=== PATIENT | male | born 1960 | race Caucasian/White ===

== ENCOUNTER → 2017-04-07 | Outpatient (CLI) | payer MEDICARE, OTHER ==
[2017-04-07 11:34] LABS: EKG EKG PERFORMED
[2017-04-07 12:07] LABS: Basophils # (A) 0.1 k/uL (0-0.2); Basophils % (A) 1 %; CH 31.1; CHCM 32.7; Eosinophils # (A) 0.4 k/uL (0-0.7); Eosinophils % (A) 4 %; HCT 49.7 % (39.0-53.0); HDW 2.32; HGB 16.2 gm/dL (13.0-17.5); Luc # (Auto) 0.13; Luc % (Auto) 1; Lymphocytes # (A) 2.2 k/uL (1.0-4.8); Lymphocytes % (A) 24 %; MCH 31.1 pg (25.0-35.0); MCHC 32.6 g/dL (31.0-37.0); MCV 95.6 fL (80.0-100.0); Mean Platelet Volume 8.1; Monocytes # (A) 0.5 k/uL (0-1.0); Monocytes % (A) 6 %; Neutrophils % (A) 65 %; RDW 13.7 % (11.5-15.5); WBC 9.3 k/uL (3.8-10.6); WBC (Perox) 9.03
[2017-04-07 12:10] LABS: Partial Thromboplastin Time 24.5 sec (22.0-30.0); Prothrombin Time 10.4 sec (9.0-12.0)
[2017-04-07 12:17] LABS: Anion Gap 7 mmol/L; Blood Urea Nitrogen 7 mg/dL (9-20); Calcium 9.1 mg/dL (8.4-10.2); Carbon Dioxide 26 mmol/L (22-30); Chloride 105 mmol/L (98-107); Glucose 92 mg/dL (74-99); Non-African American GFR(MDRD) >60 (>60 ml/min/1.73 sqM); Potassium 4.5 mmol/L (3.5-5.1); Sodium 138 mmol/L (137-145)
[2017-04-07 12:24] LABS: Appearance,Urine Clear (Clear); Bilirubin,Urine Negative (Negative); Glucose,Urine (UA) Negative (Negative); Ketones,Urine Negative (Negative); Leukocyte Esterase,Urine Negative (Negative); Nitrite,Urine Negative (Negative); Protein,Urine Negative (Negative); Specific Gravity,Urine 1.001 (1.001-1.035); UA Billing (MACRO vs. MICRO) CHEM; Urobilinogen,Urine <2.0 mg/dL (<2.0)
--- NOTE | 2017-04-07 15:05 | XR ---
EXAMINATION TYPE: XR chest 2V DATE OF EXAM: 04/07/2017 COMPARISON: Prior chest x-ray 04/28/2016 and 10/27/2016 HISTORY: Presurgical, shortness of breath TECHNIQUE: Frontal and lateral views of the chest are obtained on 3 images. FINDINGS: There is no focal air space opacity, pleural effusion, or pneumothorax seen. The cardiac silhouette size is within normal limits. Apical pleural thickening is again noted. Prominent lung vol umes indicative of underlying COPD. The osseous structures are intact. IMPRESSION: No acute cardiopulmonary process.
== END | disposition home or self-care (01) ==
LOC: LABPAT 11:12
PROVIDERS: ATTEND Orthopaedic Surgery Orthopaedic Surgery of the Spine
DX: Z01.810 Encounter for preprocedural cardiovascular examination (principal); Z01.812 Encounter for preprocedural laboratory examination; M51.06 Intervertebral disc disorders with myelopathy, lumbar region; R06.02 Shortness of breath
CPT/HCPCS: 71020; 80048; 81003; 85025; 85610; 85730; 86850; 86900; 86901; 93005

== ENCOUNTER 2017-04-17 11:09 | Day surgery (SDC) | payer MEDICARE, OTHER ==
[2017-04-11 14:13] VITALS: BMI 19.9
[~2017-04-17 11:09] MED LIST: BACITRACIN 50,000 UNIT, POLYMYXIN B 500,000 UNIT in SODIUM CHLORIDE 0.9% IRRIGATIO 1,00... IRRIGATION ONE; DEXAMETHASONE SOD PHOSPHATE 10 MG/ML 1 ML VIAL IV ONE; LACTATED RINGERS 1,000 ML IV SCH; MIDAZOLAM 2 MG/2 ML VIAL IV PRN; ONDANSETRON 4 MG/2 ML VIAL IVP ONE; SCOPOLAMINE 1.5MG/72HR PATCH TRANSDERM ONE; ceFAZolin IN SWFI 2 GM/20 ML SYRINGE IVP ONE
[2017-04-17] MEDS ORDERED: LIDOCAINE 1% 20 ML VIAL (10MG/ML) FOR IV START INTRADERMA ONE (11:32)
[2017-04-17] MEDS ORDERED: fentaNYL (PF) 50 MCG/ML 2 ML AMP ONE (13:10)
[2017-04-17] MEDS ORDERED: PROPOFOL 10 MG/ML 20 ML VIAL IV ONE (13:10)
[2017-04-17] MEDS ORDERED: SUCCINYLCHOLINE CHLORIDE 100 MG/5 ML SYR IV ONE (13:10)
[2017-04-17] MEDS ORDERED: ePHEDrine 50 MG/ML 1 ML AMP ONE (13:10)
[2017-04-17] MEDS ORDERED: LIDOCAINE 1% INJ 10MG/ML (20 ML MDV) ONE (13:10)
[2017-04-17] MEDS ORDERED: MIDAZOLAM 2 MG/2 ML VIAL ONE (13:10)
[2017-04-17] MEDS ORDERED: GELATIN SPONGE,ABSORB (LARGE) 1 EACH SPONGE TOPICAL ONE (13:33)
[2017-04-17] MEDS ORDERED: THROMBIN (BOVINE) 5,000 UNIT VIAL TOPICAL ONE (13:34)
[2017-04-17] MEDS ORDERED: BUPIVACAINE-EPI 0.5%-1:200,000 10 ML VIAL SQ ONE (13:42)
[2017-04-17] MEDS ORDERED: methylPREDNISolone ACETATE 80 MG/ML 1 ML VIAL MISCELLANE ONE (14:13)
--- NOTE | 2017-04-17 14:41 | P.OP ---
Date of Procedure: 04/17/17 Preoperative Diagnosis: Herniated nucleus pulposis L3 4, spinal stenosis L3 4 with foraminal stenosis, left lower extremity radiculopathy Postoperative Diagnosis: Same Anesthesia: GETA Pathology: none sent Condition: stable Disposition: PACU Description of Procedure: BRIEF OPERATIVE NOTE Preoperative Diagnosis: Herniated nucleus pulposis L3 4, spinal stenosis with foraminal stenosis L3 4, left lower extremity radiculopathy Postoperative Diagnosis: Same Procedure: Laminectomy and decompression with partial facetectomy and foraminotomy L3 4 Discectomy for decompression L3 4 Use of C-arm guidance Surgeon: Dr. Wells [employer] Team Member: Christopher PARNELL who is present throughout the entire the case persistence during positioning, dissection, exposure, visualization, and all crucial elements of the case as well as closure. Anesthesia: General anesthesia Estimated blood loss: Approximately 30 mL Complications: None apparent Components implanted: None Disposition: To recovery room in good stable condition. OPERATIVE INDICATIONS The patient has been having issues in their lower back and lower extremities. The patient was found have significant radicular symptoms at his left lower extremity. He was found have significant stenosis with foraminal stenosis and disc herniation at L3 4 which correlated well with his low back and lower extremity symptoms. The patient has been through conservative treatment. He is not having a prolonged benefit despite aggressive conservative treatment. We discussed various treatment options including surgery, and the patient wishes to proceed with surgery We discussed the risk, patient's alternatives and benefits of surgery including but not limited to, risk of bleeding risk of infection, risk of need for further surgery, risk of decreased, loss of motion, loss of function, nerve damage, paralysis, heart attack, blindness and . OPERATIVE SUMMARY After discussing all the risks, patient alternatives and benefits at length, the patient elected to proceed with surgical intervention, signed informed consent, and presented for their procedure. The patient was seen and examined in the preoperative holding area and the surgical site was marked. The patient was given antibiotics and brought to the operating room. The patient was sedated and intubated by anesthesia in standard fashion. The patient was positioned on to the operating room table in a prone position on the appropriate frame which was well-padded and well molded. We were careful to pad any bony prominences and pressure points. We were careful to maintain the patient's cervical spine and good neutral alignment and position throughout. The patient was prepped and draped in a normal standard fashion. An appropriate timeout and keystone protocol performed. We were able to proceed with the surgery. Fluoroscopy was utilized to establish the appropriate level. The local wound area was infiltrated with local anesthetic. An incision was made at the midline longitudinally over the appropriate levels at L3 4. Dissection was taken down subcutaneously to the level of the fascia which was split midline. Dissection was taken over the lamina. Intraoperative fluoroscopy was taken which showed a marker at the appropriate level at L3 4. With the appropriate level positively confirmed, we were able to proceed with laminectomy. The wound was copiously irrigated and suctioned dry as had been done periodically throughout the case. I performed a laminectomy with a combination of curettes and a high-speed bur and Kerrison rongeurs. A small medial facetectomy was performed again further access. A partial foraminotomy was also performed. There was significant stenosis at the neural foramen and hypertrophy of the facet joint. I took down portions of the facet capsule and the facet joint and a partial foraminotomy to get good decompression at the area. I was able get across the midline as well and connected decompression centrally across the midline. Portions of the ligamentum flavum were taken down to expose the dura and traversing nerve root. I was able to mobilize the traversing nerve root and gain access to the disc space. Note was made of obvious compression from the disc. Protecting the soft tissue structures, a small annulotomy was established. I was able to perform discectomy and remove any extruded disc fragments and any loose fragments from within the disc itself. There is some disc significant desiccation noted. I tried to preserve the disc annulus that appeared stable. There were no further extruded fragments noted. There is no evidence of dural tear or leak. Good hemostasis maintained. The wound was copiously irrigated and suctioned dry. Good decompression and discectomy was noted at L3 4. We were able to proceed with closure. The fascia was closed for a watertight closure. The subcuticular tissue was closed with absorbable suture. The wound was cleaned and dried and dressed with the appropriate dressing. The drapes were broken down. The patient was gently rolled back onto their hospital bed being careful to maintain their cervical spine and good neutral alignment and position. They were woken up by anesthesia, extubated, and brought to the recovery room in good stable condition. The patient will be admitted to the hospital for observation and for appropriate postoperative care, medical management and monitoring. We will continue to follow them closely about the postoperative course.
[2017-04-17] MEDS ORDERED: IBUPROFEN 600 MG TAB PO PRN (14:42)
[2017-04-17] MEDS ORDERED: HYDROcodone/APAP 5-325MG 1 EACH TAB PO PRN ×2 (14:42)
[2017-04-17] MEDS ORDERED: HYDROmorphone 2 MG/ML 1 ML SYRINGE IVP PRN ×2 (14:42)
[2017-04-17] MEDS ORDERED: ALBUTEROL NEBULIZED 2.5 MG/3 ML INHALATION PRN ×2 (14:43→14:53)
[2017-04-17] MEDS ORDERED: HYDROcodone/APAP 7.5-325MG 1 EACH TAB PO PRN (14:43)
[2017-04-17 14:48] VITALS: RESP 16
--- NOTE | 2017-04-17 15:16 | FL ---
Fluoroscopy HISTORY: Pain 2 seconds fluoroscopy time supplied to the referring clinician. 1 intraoperative C-arm images docume nt the procedure. See dictated report from orthopedic surgery.
--- NOTE | 2017-04-17 15:16 | XR ---
One view lumbar spine HISTORY: Lumbar laminectomy Intraoperative C-arm image documents the procedure
[2017-04-17] MEDS: HYDROmorphone 0.5 MG/0.5 ML SYRINGE IVP PRN ×4 (15:22→16:00)
[2017-04-17] MEDS ORDERED: ALBUTEROL NEBULIZED 2.5 MG/3 ML INHALATION SCH (16:00)
[2017-04-17] MEDS: IPRATROPIUM-ALBUTEROL 3 ML NEB INHALATION SCH ×2 (16:04→16:10)
[2017-04-17 17:15] VITALS: BP 130/71; TEMP 97.4
[2017-04-17 17:33] VITALS: PULSE 80
[2017-04-17] MEDS ORDERED: SYMBICORT 160-4.5 MCG INHALER INHALATION SCH (20:00)
[2017-04-17] MEDS ORDERED: ceFAZolin IN SWFI 2 GM/20 ML SYRINGE IVP SCH (21:00)
[2017-04-17] MEDS ORDERED: METOPROLOL SUCCINATE (ER) 25 MG TAB.ER.24H PO SCH (21:00)
[2017-04-18] MEDS ORDERED: NON-FORMULARY DRUG (Umeclidinium Bromide [Incruse Ellipta] 1 PUFF) INHALATION SCH (09:00)
[2017-04-18] MEDS ORDERED: ASPIRIN 81 MG PO SCH (09:00)
== END 2017-04-17 18:15 | disposition home or self-care (01) ==
LOC: OR 11:09 → 5MS5E 14:30 → OR 18:15
PROVIDERS: ATTEND Orthopaedic Surgery Orthopaedic Surgery of the Spine
DX: M51.16 Intervertebral disc disorders with radiculopathy, lumbar region (principal); M48.061 Spinal stenosis, lumbar region without neurogenic claudication; M47.817 Spondylosis without myelopathy or radiculopathy, lumbosacral region; G89.29 Other chronic pain; J44.9 Chronic obstructive pulmonary disease, unspecified; I25.10 Atherosclerotic heart disease of native coronary artery without angina pectoris; F17.210 Nicotine dependence, cigarettes, uncomplicated; Z99.81 Dependence on supplemental oxygen; Z79.51 Long term (current) use of inhaled steroids; Z79.899 Other long term (current) drug therapy; Z91.81 History of falling; Z88.8 Allergy status to other drugs, medicaments and biological substances
CPT/HCPCS: 72020; 86850; 86900; 86901; 94640

== ENCOUNTER 2018-06-08 10:26 | Emergency (ER) | payer MEDICARE, OTHER ==
[2018-06-08 10:36] VITALS: TEMP 97.4
[2018-06-08] MEDS ORDERED: ASPIRIN 81 MG PO STA (10:58)
[2018-06-08] MEDS ORDERED: SODIUM CHLORIDE 0.9% 1,000 ML IV STA (10:58)
[2018-06-08] MEDS ORDERED: KETOROLAC 30 MG/ML 1 ML VIAL IVP STA (11:00)
--- NOTE | 2018-06-08 11:16 | ED ---
Chest Pain HPI - General Chief Complaint: Chest Pain Stated Complaint: CHEST PAIN, ABNORMAL EKG Time Seen by Provider: 06/08/18 10:35 Source: patient, RN notes reviewed Mode of arrival: ambulatory Limitations: no limitations - History of Present Illness Initial Comments: Physical 58-year-old male who presents with complaints of left-sided chest pain is been going on for about 5 days. His been lasting longer initially was just left chest now goes to her left shoulder and lower to left lower chest and back area. He states is mostly dull and achy in nature it worse 01/05 he gets worse with coughing but he coughs of no phlegm he is in no fevers chills or sweats. He was seen by his doctor today and sent here for further evaluation. He did not take any aspirin. No trauma or heavy lifting reported. No recent travel. MD Complaint: chest pain - Related Data Home Medications Medication Instructions Recorded Confirmed Albuterol Sulfate [Proair Hfa] 2 puff INHALATION RT-Q6H PRN 04/25/16 06/08/18 HYDROcodone/APAP 7.5-325MG [[place] 1 tab PO TID PRN 04/25/16 06/08/18 7.5-325] Albuterol Nebulized [Ventolin 2.5 mg INHALATION RT-Q6H PRN 04/11/17 06/08/18 Nebulized] Umeclidinium [place] [Incruse 1 puff INHALATION RT-DAILY 04/11/17 06/08/18 Ellipta] Fluticasone/Salmeterol [Advair Hfa 2 puff INHALATION RT-BID 06/27/17 06/08/18 45-21 Mcg Inhaler] Metoprolol Tartrate [Lopressor] 12.5 mg PO BID 06/27/17 06/08/18 Aspirin 81 mg PO DAILY 06/08/18 06/08/18 predniSONE 5 mg PO DAILY 06/08/18 06/08/18 Previous Rx's Medication Instructions Recorded Ibuprofen 800 mg PO Q6HR PRN #20 tablet 06/08/18 Allergies Allergy/AdvReac Type Severity Reaction Status Date / Time nuclear med dye Allergy Anaphylaxis Uncoded 06/08/18 10:35 Review of Systems ROS Statement: Those systems with pertinent positive or pertinent negative responses have been documented in the HPI. ROS Other: All systems not noted in ROS Statement are negative. EKG Findings - EKG Results: EKG: interpreted by DEACON, sinus rhythm (Sinus rhythm 83. Interval 126 QRS duration 86 QT since QTC 364/427 bilaterally to enlargement no definite acute ST -T wave changes this is compared with an EKG submitted from the office today showing no change) Past Medical History Past Medical History: Asthma, COPD Additional Past Medical History / Comment(s): Advanced COPD of an emphysematous type,home 02 3 liters n/c, previous pulmonary infection with KAITLYNN, degenerative arthritis involving the lumbar spine, bronchitis, "pinched nerve"/herniated discs,spinal stenosis History of Any Multi-Drug Resistant Organisms: None Reported Past Surgical History: Heart Catheterization Additional Past Surgical History / Comment(s): Previous bronchoscopy, lung bx, fatty tumors removed from lt hand,groin, back of neck, rt eye lid sx,cataracts removed-lens implnats, laminectomy/decompression/discectomy l3-l4 Past Anesthesia/Blood Transfusion Reactions: No Reported Reaction Past Psychological History: No Psychological Hx Reported Smoking Status: Current every day smoker Past Alcohol Use History: None Reported Past Drug Use History: None Reported - Past Family History Father Family Medical History: Cancer Additional Family Medical History / Comment(s): stomach and liver cancer Mother Family Medical History: Cancer Additional Family Medical History / Comment(s): lung cancer General Exam - General Exam Comments Initial Comments: This is a well-developed asthenic appearing male who is awake alert oriented 3 Limitations: no limitations General appearance: alert, in no apparent distress Head exam: Present: atraumatic, normocephalic, normal inspection Eye exam: Present: normal appearance, PERRL, EOMI. Absent: scleral icterus, conjunctival injection, periorbital swelling ENT exam: Present: normal exam, mucous membranes moist Neck exam: Present: normal inspection. Absent: tenderness, meningismus, lymphadenopathy Respiratory exam: Present: normal lung sounds bilaterally, chest wall tenderness (Tennis palpation of left anterior chest wall left axilla left lateral chest with no step-off or crepitation slightly diminished breath sounds with no focal consolidations no rales or rhonchi. Reproducible chest pain on palpation the patient states when I do palpate his chest is identical to the discomfort he is experiencing.). Absent: respiratory distress, wheezes, rales, rhonchi, stridor Cardiovascular Exam: Present: regular rate, normal rhythm, normal heart sounds. Absent: systolic murmur, diastolic murmur, rubs, gallop, clicks GI/Abdominal exam: Present: soft, normal bowel sounds. Absent: distended, tenderness, guarding, rebound, rigid Extremities exam: Present: normal inspection, full ROM, normal capillary refill. Absent: tenderness, pedal edema, joint swelling, calf tenderness Back exam: Present: normal inspection Neurological exam: Present: alert, oriented X3, CN II-XII intact Psychiatric exam: Present: normal affect, normal mood Skin exam: Present: warm, dry, intact, normal color. Absent: rash Course Vital Signs 06/08/18 06/08/18 10:33 11:34 Temperature 97.4 F L Pulse Rate 90 Pulse Rate [ 84 Capacitor Repairer ] Respiratory 22 20 Rate Blood Pressure 128/78 O2 Sat by Pulse 99 Oximetry - Reevaluation(s) Reevaluation #1: 06/08/18 13:22 Smoking cessation: We did discuss the risks of smoking and benefits of cessation. Conversation lasting 3.1 minutes. Chest Pain MDM - MDM I did review the imaging and report is evidence of some apical thickening on the right PET scan is recommended. I did a long discussion with the patient regarding the findings and his family member. Patient has had prior CAT scans. He does see Dr. Echols from pulmonary medicine. The current presentation consistent with chest wall pain. We a long discussion regarding smoking smoking cessation as well as options for future management. Patient would like to follow-up with Dr. Echols before any other imaging is on. He will be placed on anti-inflammatories. Disposition Clinical Impression: Chest wall syndrome, Costalchondritis Disposition: HOME SELF-CARE Condition: Good Instructions: Costochondritis (ED), Thoracic Pain (ED), Chest Wall Pain (ED) Additional Instructions: Follow-up with Dr. Echols as discussed for further evaluation of the lung issue. Prescriptions: Ibuprofen 800 mg PO Q6HR PRN #20 tablet PRN Reason: Pain Is patient prescribed a controlled substance at d/c from ED?: No Referrals: Apurva Lorenz MD [Primary Care Provider] - 1-2 days Zo Echols MD [STAFF PHYSICIAN] - 1-2 days
[2018-06-08 11:37] VITALS: RESP 20
[2018-06-08 11:51] LABS: Basophils # (A) 0.1 k/uL (0-0.2); Basophils % (A) 1 %; Eosinophils # (A) 0.2 k/uL (0-0.7); Eosinophils % (A) 2 %; HCT 50.2 % (39.0-53.0); HGB 17.1 gm/dL (13.0-17.5); Lymphocytes % (A) 24 %; MCHC 34.1 g/dL (31.0-37.0); MCV 93.8 fL (80.0-100.0); Mean Platelet Volume 7.1; Monocytes # (A) 0.6 k/uL (0-1.0); Monocytes % (A) 5 %; Neutrophils # (A) 8.4 k/uL (1.3-7.7); Neutrophils % (A) 68 %; Platelet Count 278 k/uL (150-450); RBC 5.35 m/uL (4.30-5.90); RDW 12.7 % (11.5-15.5); WBC 12.5 k/uL (3.8-10.6)
[2018-06-08 12:02] LABS: D-Dimer 0.45 mg/L FEU (<0.60); INR 0.9 (<1.2); Partial Thromboplastin Time 22.4 sec (22.0-30.0); Prothrombin Time 10.2 sec (9.0-12.0)
[2018-06-08 12:08] LABS: ALT 14 U/L (21-72); AST 24 U/L (17-59); Albumin 4.3 g/dL (3.5-5.0); Alkaline Phosphatase 58 U/L (38-126); Anion Gap 12 mmol/L; Blood Urea Nitrogen 16 mg/dL (9-20); Calcium 9.1 mg/dL (8.4-10.2); Carbon Dioxide 26 mmol/L (22-30); Chloride 103 mmol/L (98-107); Glucose 73 mg/dL (74-99); Lipase 144 U/L (23-300); Magnesium 2.1 mg/dL (1.6-2.3); Sodium 141 mmol/L (137-145); Total Bilirubin 0.5 mg/dL (0.2-1.3); Total Protein 7.3 g/dL (6.3-8.2)
[2018-06-08 12:14] LABS: Creatine Kinase 89 U/L (55-170)
[2018-06-08 12:27] LABS: Troponin I <0.012 ng/mL (0.000-0.034)
--- NOTE | 2018-06-08 12:36 | XR ---
EXAMINATION TYPE: XR chest 2V DATE OF EXAM: 06/08/2018 COMPARISON: 03/02/2018 TECHNIQUE: PA and lateral views submitted. HISTORY: Cough FINDINGS: There is a right apical pleural thickening or mass measuring 2.7 cm. Emphysematous changes are seen. Pulmonary arteries are prominent correlate for pulmonary artery hypertension. No acute infiltrate, pl eural effusion or pneumothorax. No overt failure. IMPRESSION: 1. COPD with apical pleural thickening which has a masslike configuration the right upper lobe. Recom mend follow-up PET scan.
[2018-06-08 13:42] VITALS: BP 117/76; PULSE 67
== END 2018-06-08 13:50 | disposition home or self-care (01) ==
LOC: EC 10:26
DX: M94.0 Chondrocostal junction syndrome [Tietze] (principal); J44.9 Chronic obstructive pulmonary disease, unspecified; Z71.6 Tobacco abuse counseling; F17.200 Nicotine dependence, unspecified, uncomplicated; Z95.818 Presence of other cardiac implants and grafts; Z79.51 Long term (current) use of inhaled steroids; Z79.82 Long term (current) use of aspirin; Z79.52 Long term (current) use of systemic steroids; Z79.899 Other long term (current) drug therapy; Z91.048 Other nonmedicinal substance allergy status
CPT/HCPCS: 36415; 93005; 85379; 83880; 80053; 82550; 82553; 83690; 83735; 84484; 85025; 85610; 85730; 71046; 99285; 99406; 96374; 96361 ×3; J1885

== ENCOUNTER 2018-09-13 08:19 | Day surgery (SDC) | payer MEDICARE, OTHER ==
[2018-09-11 12:36] VITALS: BMI 20.2
[~2018-09-13 08:19] MED LIST changes: -BACITRACIN 50,000 UNIT, POLYMYXIN B 500,000 UNIT in SODIUM CHLORIDE 0.9% IRRIGATIO 1,00... IRRIGATION ONE; -DEXAMETHASONE SOD PHOSPHATE 10 MG/ML 1 ML VIAL IV ONE; +LIDOCAINE 1% 20 ML VIAL (10MG/ML) FOR IV START INTRADERMA PRN; -MIDAZOLAM 2 MG/2 ML VIAL IV PRN; -ONDANSETRON 4 MG/2 ML VIAL IVP ONE; -SCOPOLAMINE 1.5MG/72HR PATCH TRANSDERM ONE; -ceFAZolin IN SWFI 2 GM/20 ML SYRINGE IVP ONE
[2018-09-13 08:59] VITALS: RESP 20; TEMP 99.1
[2018-09-13] MEDS ORDERED: MIDAZOLAM 2 MG/2 ML VIAL ONE (09:21)
[2018-09-13] MEDS ORDERED: PROPOFOL 10 MG/ML 20 ML VIAL IV ONE (09:21)
[2018-09-13] MEDS ORDERED: fentaNYL (PF) 50 MCG/ML 2 ML AMP ONE (09:21)
[2018-09-13] MEDS ORDERED: LIDOCAINE 1% INJ 10MG/ML (20 ML MDV) ONE (09:21)
[2018-09-13 10:04] VITALS: BP 117/78; PULSE 69
--- NOTE | 2018-09-13 11:03 | P.PCN ---
Date of Procedure: 09/13/18 Procedure(s) Performed: Procedure: Esophagogastroduodenoscopy and biopsy. Preoperative diagnosis: Dysphagia. Postoperative diagnosis: 1. Gastritis but no obvious esophagitis, complicated reflux disease or other pathology to account for his symptoms. 2. Biopsies obtained from the duodenum, antrum, cardia and esophagus. Preparation and sedation: Was provided by anesthesia. Brief clinical history: The patient is a 58-year-old male who is scheduled for this evaluation because of recent onset of dysphagia and feeling of food stuck as he swallows with instances where he had to bring the food back up. No history of reflux or any significant weight loss. Procedure: With the patient on his left lateral decubitus position and after informed consent and adequate sedation, I passed the Olympus-GIF H 190 video upper endoscope through the cricopharyngeus down the esophagus. There was no definite hiatal hernia and the esophagus did not show any obvious esophagitis or complicated reflux disease. The endoscope was then passed into the stomach which was insufflated with air and inspected in detail including the retroflex view in the cardia. There was mottling and erythema in the antrum and some erythema and edema and the prominent fold in the cardia but no tumors or other abnormalities to account for his symptoms. Pyloric channel, duodenal bulb, post bulbar area and descending duodenum appeared within normal limits. I obtained biopsies from the duodenum, antrum, cardia and esophagus then the endoscope was withdrawn. The patient tolerated the procedure well. Plan: The patient was reassured. Will await pathology results and make further plans. He will follow up with you as planned. I might consider further evaluation including motility studies depending on his symptoms and course.
== END 2018-09-13 10:14 | disposition home or self-care (01) ==
LOC: ORWHC2ENDO 08:19
DX: R13.10 Dysphagia, unspecified (principal); K29.50 Unspecified chronic gastritis without bleeding; J44.9 Chronic obstructive pulmonary disease, unspecified; Z91.041 Radiographic dye allergy status; F17.210 Nicotine dependence, cigarettes, uncomplicated; G89.29 Other chronic pain; Z79.891 Long term (current) use of opiate analgesic; Z79.899 Other long term (current) drug therapy; Z90.49 Acquired absence of other specified parts of digestive tract
CPT/HCPCS: 88305; 43239; J2250; J2001; J3010; J2704

== ENCOUNTER → 2018-12-31 | Outpatient (CLI) | payer MEDICARE ==
--- NOTE | 2018-12-31 13:48 | XR ---
EXAMINATION TYPE: XR chest 2V DATE OF EXAM: 12/31/2018 COMPARISON: 06/08/2018 TECHNIQUE: PA and lateral views submitted. HISTORY: Shortness of breath FINDINGS: The lungs are clear and there is no pneumothorax, pleural effusion, or focal pneumonia. Biapical pl eural thickening greater on the right is stable. Hyperinflation noted. No overt failure. Hypertrophic change of the vertebral column. IMPRESSION: 1. COPD. Apical pleural thickening is stable dating back to 07/05/2017.
== END | disposition home or self-care (01) ==
LOC: RADXRYALE 13:13
PROVIDERS: ATTEND Internal Medicine
DX: J44.9 Chronic obstructive pulmonary disease, unspecified (principal)
CPT/HCPCS: 71046

== ENCOUNTER → 2019-01-02 | Outpatient (CLI) | payer MEDICARE, OTHER ==
--- NOTE | 2019-01-02 15:26 | CT ---
EXAMINATION TYPE: CT angio chest DATE OF EXAM: 01/02/2019 COMPARISON: Prior CT chest dated 04/25/2016 HISTORY: LILLIE, PAIN IN RT SIDE CT DLP: 202.60 mGycm Automated exposure control for dose reduction was used. CONTRAST: CTA scan of the thorax is performed with IV Contrast, patient injected with 100 mL of Isovue 370, pul monary embolism protocol. MIP images are created and reviewed. 3D reconstructed images are created on an independent workstation and reviewed. FINDINGS: LUNGS: The lungs are grossly clear, there is no concerning parenchymal mass or nodule identified. Jasmina trilobular emphysematous changes are present and are extensive. Apical bullous disease is noted. Ther e is some associated scarring. There is no pleural effusion or pneumothorax seen. The tracheobronch ial tree is patent. AORTA: No additional significant abnormality is seen. MEDIASTINUM: There is satisfactory enhancement of the pulmonary artery and its branches, there is no CT evidence for pulmonary embolism. There are no greater than 1 cm hilar or mediastinal lymph nodes. No pericardial effusion is seen. Central bronchial wall thickening is again noted. OTHER: There is a small hiatal hernia. IMPRESSION: NO EVIDENT PULMONARY EMBOLISM. EMPHYSEMA.
== END | disposition home or self-care (01) ==
LOC: RADCTMAIN 14:22
PROVIDERS: ATTEND Internal Medicine
DX: I26.99 Other pulmonary embolism without acute cor pulmonale (principal); Z88.8 Allergy status to other drugs, medicaments and biological substances
CPT/HCPCS: 71275; Q9967

== ENCOUNTER → 2020-04-29 | Outpatient (CLI) | payer MEDICARE, OTHER ==
--- NOTE | 2020-04-29 15:37 | US ---
EXAMINATION TYPE: US scrotum with doppler. Grayscale and color Doppler Duplex imaging performed of miguel cisneros scrotum. DATE OF EXAM: 04/29/2020 COMPARISON: NONE CLINICAL HISTORY: N50.9 Disorder of male genital organs. Patient states having bumps on testes. No i njury. EXAM MEASUREMENTS: TESTICLES: Right Testicle: 3.9 x 3.2 x 2.2 cm Left Testicle: 3.7 x 3.1 x 2.2 cm EPIDIDYMIS HEAD: Right Epididymis: 0.9 x 0.9 x 0.8 cm Left Epididymis: 1.0 x 1.0 x 1.0 cm Doppler performed to assess for testicular vascularity; bilateral color flow and waveforms are seen. Presence of hydroceles: small bilaterally Presence of varicoceles: no Right epididymal cystic lesion = 0.3 x 0.2 x 0.3 cm. Possible right testicular appendix = 0.6 x 0.5 x 0.4 cm. Possible left testicular appendix = 0.7 x 0.7 x 0.2 cm Testicular echotexture is homogenous and symmetric. IMPRESSION: Small right epididymal cyst a small bilateral hydroceles additional findings above. No in tratesticular mass is evident
== END | disposition home or self-care (01) ==
LOC: RADUSWWP 14:15
PROVIDERS: ATTEND Internal Medicine
DX: N43.3 Hydrocele, unspecified (principal); N50.9 Disorder of male genital organs, unspecified; N50.3 Cyst of epididymis
CPT/HCPCS: 76870; 93975

== ENCOUNTER → 2022-01-08 | Outpatient (CLI) | payer MEDICARE, OTHER ==
--- NOTE | 2022-01-09 04:13 | MR ---
EXAMINATION TYPE: MR lumbar spine wo con DATE OF EXAM: 01/08/2022 COMPARISON: None HISTORY: Lower back pain, radiates down left leg. History of surgery. Multiplanar multiecho imaging of the lumbar spine with no contrast. Normal alignment. There is mild disc space narrowing from L3 to S1. There is a sacral cyst at the S2 level. No compression fracture. There is posterior disc bulging at L3-4 on the left side. There appea rs to be significant neural foraminal narrowing at L3-4 on the left side with component of lateral di sc herniation. No compression fracture. No evidence of focal bone destruction. There is no lumbar par aspinal mass. The visualized sacroiliac joints appear intact. IMPRESSION: There is a left side Posterior lateral small disc herniation at L3-4 with impingement on the neural f oramen. no spinal stenosis.
== END | disposition home or self-care (01) ==
LOC: RADMRIMAIN 09:07
PROVIDERS: ATTEND Internal Medicine
DX: M51.26 Other intervertebral disc displacement, lumbar region (principal)
CPT/HCPCS: 72148

== ENCOUNTER → 2022-05-19 | Outpatient (CLI) | payer MEDICARE ==
[2022-05-19 07:51] VITALS: BP 112/71; PULSE 94; RESP 16; TEMP 98.2
--- NOTE | 2022-05-19 08:06 | P.PAINCN ---
History of Present Illness - Reason for Consult Consult date: 05/19/22 - Chief Complaint Lumbar back pain and pain radiating to bilateral lower extremity - History of Present Illness Mr. Albert is a 62 year old pleasant male patient came to [facility] pain management clinic for initial evaluation for lumbar back pain, and pain radiating to bilateral lower extremity. Left side radiating lower extremity pain is worse on the right side. He had lumbar laminectomy by Dr. Wells. Patient described pain started more than 2 years ago. Gradually getting worse. Patient described pain as aching, sharp, throbbing, burning type of pain. Patient rated pain 8 out of 10 in severity. Which may very her pain level from 6-10 out of 10 in severity. Pain increases with activities, and standing, walking, sitting, bending forward, and lifting. Pain decreases with THC and Neurontin to some extent. Overall patient activities decreased secondary to pain. Pain medications helping to some extent. Because of the pain patient is feeling lack of sleep and interest and energy. Denied any bowel or bladder problems. Patient denies any adverse effects to medications. He is using cane walking aids for walking. Complaining depression secondary to pain but denied any suicidal/homicidal tendency at this time. Sleep pattern -altered secondary to pain. There are no signs of narcotic diversion/misuse/overuse and no new-onset weakness, bowel/bladder incontinence, saddle anesthesia, or no red flag symptoms. Review of Systems 13 point review of symptoms negative except as mentioned in the history of present illness. Past Medical History Past Medical History: Asthma, COPD, Hypertension Additional Past Medical History / Comment(s): Advanced COPD of an emphysematous type,home 02 3 liters n/c, previous pulmonary infection with KAITLYNN, degenerative arthritis involving the lumbar spine, bronchitis, "pinched nerve"/herniated disc s,spinal stenosis History of Any Multi-Drug Resistant Organisms: None Reported Past Surgical History: Back Surgery Additional Past Surgical History / Comment(s): Previous bronchoscopy, lung bx, fatty tumors removed from lt hand,groin, back of neck, rt eye lid sx,cataracts removed-lens implnats, laminectomy/decompression/discectomy l3-l4,. COLONOSCOPY, EGD Past Anesthesia/Blood Transfusion Reactions: No Reported Reaction Past Psychological History: No Psychological Hx Reported Smoking Status: Never smoker Past Alcohol Use History: None Reported Additional Past Alcohol Use History / Comment(s): started smoking at age 12-was smoking 3 ppd but has cut down to 3-4 cig per day, ON CHANTIX-TRYING TO QUIT Past Drug Use History: None Reported - Past Family History Father Family Medical History: Cancer Additional Family Medical History / Comment(s): stomach and liver cancer Mother Family Medical History: Cancer Additional Family Medical History / Comment(s): lung cancer Medications and Allergies Home Medications Medication Instructions Recorded Confirmed Type Albuterol Sulfate [Proair Hfa] 2 puff INHALATION RT-Q6H PRN 04/25/16 05/19/22 History HYDROcodone/APAP 7.5-325MG [[place] 1 tab PO TID PRN 04/25/16 05/19/22 History 7.5-325] Albuterol Nebulized [Ventolin 2.5 mg INHALATION RT-Q6H PRN 04/11/17 05/19/22 History Nebulized] Umeclidinium [place] [Incruse 1 puff INHALATION RT-DAILY 04/11/17 05/19/22 History Ellipta] Fluticasone Propion/Salmeterol 2 puff INHALATION RT-BID 06/27/17 05/19/22 History [Advair Hfa 45-21 Mcg Inhaler] Metoprolol Tartrate [Lopressor] 12.5 mg PO BID 06/27/17 05/19/22 History Aspirin 81 mg PO DAILY 06/08/18 05/19/22 History predniSONE 5 mg PO DAILY 06/08/18 05/19/22 History Varenicline [Chantix Continuing 1 mg PO BID 09/11/18 05/19/22 History Pack] Allergies Allergy/AdvReac Type Severity Reaction Status Date / Time nuclear med dye Allergy Anaphylaxis Uncoded 05/19/22 07:51 Physical Exam General: Well-developed, well-nourished, no acute distress HEENT: Normocephalic, and atraumatic Neck: Supple, no neck swelling Psychiatric: Appropriate mood, and affect FIELD MARKETING REPRESENTATIVE: No focal neurological deficits Musculoskeletal: Upper extremity: Normal strength, and range of motion. Sensation grossly intact Lower extremity: Overall decreased strength, and decreased range of motion secondary to pain Lumbar spine: Healed lower lumbar scar. Paravertebral tenderness: positive Straight leg raising test: Positive Lumbar facet load test : positive Sacroiliac joint tenderness: Positive Thigh thrust test: Positive SI joint compression test: Positive Fabere test: Positive Results Comments: MRI of the lumbar spine done on 01/08/2022 showed Lumbar spondylosis from L3 to S1. Disc desiccation, height loss, and disc bulging at L3 to S1 level. At L3-L4 there is a severe bilateral foraminal, and moderate central canal stenosis at L4-L5. There is a severe central, and bilateral foraminal stenosis at L5-S1. There is a moderate central, bilateral foraminal stenosis. There is a left side Tarlov cyst which is present at S2 level. Assessment and Plan Assessment: Lumbar postlaminectomy syndrome Lumbar radiculopathy Lumbar spondylosis without myelopathy L3-S1 spondylolysis with stenosis L3-L4 disc bulge S2 Tarlov cyst Left lower extremity weakness Plan: #1 Diagnoses, prognosis, and multiple treatment options including but not limited to physical therapy, interventional therapy, adjunct medication therapy, narcotic medication, and surgical options were discussed with the patient. And all questions were answered to the patient's satisfaction. #2 treatment plan agreement : Patient was thoroughly discussed regarding the treatment options, alternatives, and importance of exercises as tolerated. Patient clearly understood. #3 Patient was counseled on importance of regular exercise. Including melvin chi, aerobic exercises as tolerated. Which helps for chronic pain, and overall well- being. Patient also counseled regarding importance of anti-inflammatory foods role in chronic pain, and overall other health issues. By altering diet habits, minimizing sugar intake, and processed foods helps in minimizing Inflammation. Also discussed with the patient regarding intermittent fasting. #4 investigations: MAPS- reviewed , urine drug test- none #5 diagnostic tests: None #6 consultation : None at this time, but recommended to continue physical therapy at home # 7 interventional procedures: L3-L4 lumbar epidural steroid injection . Procedure, complications, alternatives discussed with the patient. #8 medications #1 Motrin as needed #2 gabapentin #3 Tylenol as needed Medication side effects, complications, long-term consequences discussed with the patient. #9 morphine milligrams equivalents dose ( MME) per day:zero the pain clinic. # 10 commanded to use TENS units #11 disposition: scheduled to follow up with pain clinic in 4 weeks duration for intervention procedure. Time with Patient: Less than 30 PQRS Measure Charge Sheet Measure #130: Documentation of Current Meds in Medical Chart: Patient's medications documented in chart Measure #226: Tobacco Use: Screen & Cessation Intervention: Pt screened for tobacco use AND intervention given Measure #111: Pneumonia Vaccination: Pneumococcal vaccine NOT administered or previously given Measure #47: Advance Care Plan: Advance care planning discussed & documented, pt chose/unable to give Measure #412: Opioid Treatment Agreement: No documentation of signed opioid treatment agreement Measure #408: Opioid Therapy Follow-up Evaluation: Patient had NO f/u eval minimum every 3 months during opioid therapy Measure #317: Preventitive Care & Scrn High Bld Press & F/U: Pre-hypertensive or hypertensive BP documented, pt will f/u with PCP Measure #128: Body Mass Index (BMI) Screening & Follow-up: BMI documented within normal parameters Measure #131: Pain Assessment & Follow-up: Pain positive & plan documented Measure #431: Unhealthy Alcohol Use Preventative Care & Scrn: Patient not identified as an unhealthy alcohol user PQRS Narrative: Smoking Status Current every day smoker Home Medications: Ambulatory Orders Albuterol Sulfate [Proair Hfa] 2 puff INHALATION RT-Q6H PRN 04/25/16 HYDROcodone/APAP 7.5-325MG [[place] 7.5-325] 1 tab PO TID PRN 04/25/16 Albuterol Nebulized [Ventolin Nebulized] 2.5 mg INHALATION RT-Q6H PRN 04/11/17 Umeclidinium [place] [Incruse Ellipta] 1 puff INHALATION RT-DAILY 04/11/17 Fluticasone Propion/Salmeterol [Advair Hfa 45-21 Mcg Inhaler] 2 puff INHALATION RT-BID 06/27/17 Metoprolol Tartrate [Lopressor] 12.5 mg PO BID 06/27/17 Aspirin 81 mg PO DAILY 06/08/18 predniSONE 5 mg PO DAILY 06/08/18 Varenicline [Chantix Continuing Pack] 1 mg PO BID 09/11/18
== END ==
LOC: PNWHC3 07:24
DX: M47.26 Other spondylosis with radiculopathy, lumbar region (principal); M96.1 Postlaminectomy syndrome, not elsewhere classified; R53.1 Weakness; M48.07 Spinal stenosis, lumbosacral region; G96.191 Perineural cyst; I10 Essential (primary) hypertension; J44.9 Chronic obstructive pulmonary disease, unspecified; J45.909 Unspecified asthma, uncomplicated; F17.200 Nicotine dependence, unspecified, uncomplicated; Z91.041 Radiographic dye allergy status
CPT/HCPCS: 99211

== ENCOUNTER 2022-06-28 06:15 | Day surgery (SDC) | payer MEDICARE ==
[~2022-06-28 06:15] MED LIST changes: +LIDOCAINE 1% (10MG/ML) FOR IV START INTRADERMA PRN; -LIDOCAINE 1% 20 ML VIAL (10MG/ML) FOR IV START INTRADERMA PRN
[2022-06-28 07:18] VITALS: RESP 16; TEMP 97.2
[2022-06-28] MEDS ORDERED: methylPREDNISolone ACETATE 40 MG/ML 1 ML VIAL ONE (07:19)
[2022-06-28 07:21] LABS: Glucose,Whole Blood 87 mg/dL (70-110)
--- NOTE | 2022-06-28 07:34 | P.PCN ---
Date of Procedure: 06/28/22 Procedure(s) Performed: PREOPERATIVE DIAGNOSIS: 1- Lumbar Degenerative Disc Diseases 2-Lumbar spondylosis with Facet arthropathy without myelopathy. 3-lumbar spinal stenosis POSTOPERATIVE DIAGNOSIS: Same as preop diagnosis. PROCEDURE 1. Lumbar epidural steroid injection under fluoroscopic guidance at the L3-4 level. (Fluoroscopy imaging was available in radiology department) ANESTHESIA: Local with lidocaine 1% 3 mL only EBL: Minimal PROCEDURE INDICATION: The patient with low back pain and radiculitis symptoms unresponsive to conservative treatment. Fluoroscopy was used to optimize visualization of the needle placement and to maximize safety. PROCEDURE DESCRIPTION / TECHNIQUE: The patient was seen and identified in the preoperative area. Risks, benefits, complications including but not limited to infections ,bleeding ,allergic reaction to the medications ,nerve damage and not complete pain releife , and alternatives were discussed with the patient. The patient agreed to proceed with the procedure and signed the consent. IV was started, and vital signs were stable. Patient was taken to the OR and time out was completed. The patient was placed in the prone position on procedure table and a pillow was placed under the abdomen to reduce lumbar lordosis. The lumbosacral area was prepped and draped in the usual sterile fashion.ere closely monitored during the procedure.. Vital signs was monitered during the entire procedure. Using anterior-posterior fluoroscopy, the L3-4 interlaminar space was identified and the skin over this site was marked and then infiltrated with 1% lidocaine subcutaneously. Subsequently, a 20-gauge Tuohy epidural needle was inserted and advanced toward the epidural space using the ``Loss of resistance technique and guided by AP and lateral fluoroscopy, after negative aspiration for blood and CSF and in the absence of paresthesias. Again after negative aspiration, a 6 ml mixture containing 40 mg of Depo-medrol ( Preservetive Free ), and 2 ml of preservative free Normal Saline, and 2 ml of preservative free l idocaine 1% solution was injected . Needle was withdrawn intact, skin was cleansed, and bandages were applied. COMPLICATIONS: None note= Isovue was not injected because patient had ALLERGY to dye. DISPOSITION / PLANS: The patient was placed in a supine position and transferred to the recovery area in a stable condition for observation. There was no evidence of lower extremity motor or sensory deficit after the procedure. Patient was discharged from the recovery room after meeting discharge criteria. Home discharge instructions were given to the patient by the staff. The patient was reexamined prior to discharge. The patient will schedule a follow up in the clinic in 2-4 weeks.
[2022-06-28] MEDS ORDERED: IV FLUID CONTINUATION 1,000 ML IV ONE (07:36)
--- NOTE | 2022-06-28 07:49 | FL ---
Intraoperative/procedural fluoroscopic services were provided. Total fluoroscopy time is 4 seconds wi th a total of 1 submitted images to PACS. Please see the operative/procedural note for further detail s.
[2022-06-28 07:57] VITALS: BP 118/71; PULSE 65
== END 2022-06-28 08:12 | disposition home or self-care (01) ==
LOC: ORPAIN 06:15
PROVIDERS: ATTEND Specialist
DX: M51.16 Intervertebral disc disorders with radiculopathy, lumbar region (principal); M47.26 Other spondylosis with radiculopathy, lumbar region; M48.061 Spinal stenosis, lumbar region without neurogenic claudication; Z91.041 Radiographic dye allergy status
CPT/HCPCS: 62323; J1030

== ENCOUNTER → 2022-08-30 | Outpatient (CLI) | payer MEDICARE, OTHER ==
--- NOTE | 2022-08-31 06:25 | US ---
EXAMINATION TYPE: US mass soft tissue chest/back DATE OF EXAM: 08/30/2022 COMPARISON: NONE CLINICAL HISTORY: M27.2 INFLAMMATORY CONDITIONS OF JAWS. Palpable area left side of cheek along jawli ne x 1 month Left cheek: 0.9 x 0.3 x 0.9cm hypoechoic superficial hypoechoic area seen Within the dermal layer there is 9 x 3 x 9 mm hypoechoic oval area that is parallel to the skin surfa ce without vascularity. IMPRESSION: Lesion above too small to definitively characterize but almost certainly benign based on size and location. Dermal etiology would be favored. Repeat imaging would be warranted if lesion is felt to enlarge or become painful area
== END | disposition home or self-care (01) ==
LOC: RADUSWWP 14:49
PROVIDERS: ATTEND Internal Medicine
DX: M27.2 Inflammatory conditions of jaws (principal)
CPT/HCPCS: 76536

== ENCOUNTER → 2023-12-05 | Outpatient (CLI) | payer MEDICARE, OTHER ==
--- NOTE | 2023-12-05 09:09 | CTL ---
EXAMINATION TYPE: CT Low Dose Lung DATE OF EXAM: 12/05/2023 8:53 AM CLINICAL INDICATION:Male, 63 years old with history of Z87.891 personal hx tobacco use; personal hx o f nicotine dependence 1ppd X 30 years current smoker , history of tobacco use. COMPARISON: None. TECHNIQUE: Multiple axial non-contrast scans were obtained from approximately the lung apices through the upper abdomen. Coronal and sagittal reformatted images were obtained. Low dose technique was uti lized. CT DLP: 62.30 mGycm, Automated exposure control for dose reduction was used. CT Contrast: Contrast used: None Oral contrast used: None FINDINGS: ======== Lack of intravenous contrast and low dose technique limits the evaluation of the vascular and soft ti ssue structures. LUNGS: No evidence of pulmonary fibrosis. No evidence of focal consolidation, pneumothorax or pleural effusion. Centrilobular emphysema changes. Bullous emphysema changes in the lung apices with some sc arring. Nodules: RUL: None. RML: None. RLL: None. KENZIE: None. LLL: None. AIRWAY: Patent and unremarkable. HEART: Size within normal limits. MEDIASTINUM: No gross evidence of adenopathy. VASCULATURE: Atherosclerotic calcifications are present throughout the aorta and its branches. MUSCULOSKELETAL: No acute osseous abnormalities SOFT TISSUES/LYMPH NODES: Unremarkable. LOWER NECK: No significant findings. UPPER ABDOMEN: No significant findings. IMPRESSION: 1. No clinically significant pulmonary nodules. 2. Severe emphysema. CT LUNG RAD AND CT CHEST RECOMMENDATION: Lung-Rad 1 Negative: Continue annual screening with LDCT in 12 months. S Modifier (other clinically significant findings): None Recommend smoking cessation (if current smoker), or continuation of smoking cessation (if prior smoke r). Annual screening for lung cancer with low-dose computed tomography is recommended in adults ages 55 to 77 years who have a 30 pack-year smoking history and currently smoke or have quit within the pa st 15 years. Screening should be discontinued once a person has not smoked for 15 years or develops a health problem that substantially limits life expectancy or the ability or willingness to have curat kelli lung surgery. Lung rads 2021 [email or web address]
== END | disposition home or self-care (01) ==
LOC: RADCTMAIN 08:26
PROVIDERS: ATTEND Family Medicine
DX: Z12.2 Encounter for screening for malignant neoplasm of respiratory organs (principal); J43.2 Centrilobular emphysema; Z87.891 Personal history of nicotine dependence
CPT/HCPCS: 71271